=== PATIENT | male | born 1970 | race Caucasian/White ===

== ENCOUNTER 2019-06-29 19:10 | Inpatient (IN) ==
--- OUTSIDE RECORDS SUMMARY | 2019-06-29 19:13 | External Medical Summary | Continuity of Care Document ---
:1970 Author Name Jer Haines Address Unavailable Unavailable , Care Team Providers Name Role Phone Unavailable Unavailable Unavailable [email or web address] [email or web address] [place] ROACH M.D. Unavailable Unavailable Unavailable Unavailable Unavailable Problems Right shoulder pain (719.41) (M25.511) Allergies and Adverse Reactions No Known Drug Allergies (Allergy) Medications Ibuprofen 800 MG Oral Tablet; TAKE 1 TABLET 3 TIMES DA ZAINAB WITH MEALS. CHRISTIAN Grider Start: 27-Dec-2014 Quantity: 60 Refills: 0 Colon Herbal Cleanser Oral Capsule , M.DMaya Refills: 0 Procedures Procedures not documented Immunizations Immunizations not documented Social History - Smoking Status Current some day smoker Plan of Treatment Planned Observations Planned Goals not documented Results No Known Results Results not documented
[2019-06-29] MEDS ORDERED: DIPHTHERIA/TETANUS/PERTUSSIS 0.5 ML SYR/VIAL IM ONE (19:37)
[2019-06-29] MEDS ORDERED: SODIUM CHLORIDE 0.9% 1000ML 1,000 ML IV SCH (19:45)
--- NOTE | 2019-06-29 19:58 | XRay Report ---
XR chest 1V portable CLINICAL HISTORY: fever dyspnea COMPARISON STUDY: No previous studies for comparison. FINDINGS: The bones soft tissues and hemidiaphragms are normal. The cardiomediastinal silhouette is n ormal. The lungs are clear. The pulmonary vasculature is normal. IMPRESSION: Negative chest. ACT 112: Negative or not required by law. The above report was generated using voice recognition software. It may contain grammatical, syntax or spelling errors. Electronically signed by: Gasper Arana M.D. 06/29/2019 7:57 PM
--- NOTE | 2019-06-29 19:58 | XRay Report ---
XR ankle RT min 3V routine CLINICAL HISTORY: cellulitis, hx ankle surgery pain. Cellulitis. COMPARISON: None. DISCUSSION: Open reduction internal fixation of the distal fibula. Cortical margins are intact. Ankle mortise is aligned anatomically. No lytic or blastic process. Considerable lateral soft tissue edema. 2009 IMPRESSION: 1. No acute bony abnormality. 2. Postoperative changes to the distal fibula. 3. Lateral nonspecific soft tissue edema. ACT 112: Negative or not required by law. The above report was generated using voice recognition software. It may contain grammatical, syntax or spelling errors. Electronically signed by: Gaspre Arana M.D. 06/29/2019 7:56 PM
--- NOTE | 2019-06-29 19:59 | XRay Report ---
XR tibia fibula RT 2V CLINICAL HISTORY: cellulitis, hx ankle surgery pain COMPARISON: None. DISCUSSION: Findings consistent with prior open reduction internal fixation of the distal fibula. Sof t tissue edema. No well-defined acute bony abnormality. The margins appear to be intact. IMPRESSION: Soft tissue edema. Pre-existing postoperative changes distal fibula. No acute process. ACT 112: Negative or not required by law. The above report was generated using voice recognition software. It may contain grammatical, syntax or spelling errors. Electronically signed by: Gasper Arana M.D. 06/29/2019 7:58 PM
--- NOTE | 2019-06-29 20:08 | Emergency Department Note ---
ED Provider Note CHIEF COMPLAINT: Right leg pain, redness, swelling HISTORY OF PRESENTING ILLNESS: This is a 49-year-old male who presents to the emergency department by private vehicle with complaint of right lower leg redness, swelling, and pain that he believes started yesterday. Patient states that he started to have some pain in the leg yesterday afternoon and also had fevers off and on since yesterday afternoon. Today when he was putting his socks on, he noticed that the leg was swollen and red. He reports fevers fluctuating between 102-104, and he last took Tylenol around 5:30 PM today. He states that he had bumped his leg several times while working, but denies any known injury and he is unsure if he cut or scraped the leg. He denies any history of cellulitis or infections in the past. He is [employer], and reports that he was vaccinated as a child, but his tetanus is not currently up-to-date. He does note that he had an ankle surgery with plates and screws about 25 years ago, he denies any swelling or pain in the ankle joint or foot. He denies any headaches, neck pain, chest pain, shortness of breath, dizziness or syncope, abdominal pain, back pain, numbness/tingling or weakness of the extremities, nausea or vomiting, change in appetite, urinary symptoms, or unusual rash. He denies any URI symptoms or cough. REVIEW OF SYSTEMS: A complete 10 point review of systems was reviewed with the patient with pertinent positives and negatives as per history of present illness. All else were negative. PAST MEDICAL HISTORY: No significant past medical history. History of right ankle surgery. SOCIAL HISTORY: Lives at home, he is Anglican, denies tobacco use ALLERGIES: No known allergies PHYSICAL EXAM: CONSTITUTIONAL: Pleasant and cooperative. Nontoxic-appearing and in no acute distress. Mildly dehydrated, but otherwise well appearing and well nourished. HEENT: Normocephalic, atraumatic. PERRL, EOMI. Pharynx normal. Tacky mucous membranes. NECK: Supple, full active range of motion without discomfort. No cervical adenopathy. RESPIRATORY: Clear to auscultation bilaterally with no wheezing, crackles, rhonchi or stridor. Equal expansion bilaterally. CARDIOVASCULAR: Tachycardic. Regular rhythm with no murmurs, rubs or gallops. Normal peripheral perfusion. No edema. GASTROINTESTINAL: Soft, nontender, nondistended. No palpable masses or HSM. Bowel sounds present in all quadrants. MUSCULOSKELETAL: There is swelling, tenderness, warmth, and circumferential erythema of the right calf extending from the ankle to just below the knee. No blistering or bulla noted. Small open area on the medial aspect of the lower ca lf with serous fluid draining, no purulence or foul odor. Full range of motion of the ankle and knee joints without discomfort. DP and PT pulses 2+ bilaterally. INTEGUMENTARY: No rash or other significant dermatologic conditions noted. NEUROLOGIC: Alert and oriented X 4 with normal affect. Normal strength and sensation in all 4 extremities. ED COURSE AND MEDICAL DECISION MAKING: CC: Patient presenting with complaint of right leg pain, redness, swelling DIFFERENTIAL DIAGNOSIS: Includes, but not limited to cellulitis, abscess, bacteremia/sepsis, DVT, infected surgical hardware, osteomyelitis, among others. INTERPRETATION OF LABS: Leukocytosis with left shift, mild anemia, normal pl atelets, no significant electrolyte abnormalities, normal renal function, normal liver enzymes. Lactate within normal limits. IMAGING: XR ankle RT min 3V routine CLINICAL HISTORY: cellulitis, hx ankle surgery pain. Cellulitis. COMPARISON: None. DISCUSSION: Open reduction internal fixation of the distal fibula. Cortical margins are intact. Ankle mortise is aligned anatomically. No lytic or blastic process. Considerable lateral soft tissue edema. 2009 IMPRESSION: 1. No acute bony abnormality. 2. Postoperative changes to the distal fibula. 3. Lateral nonspecific soft tissue edema. ----- XR tibia fibula RT 2V CLINICAL HISTORY: cellulitis, hx ankle surgery pain COMPARISON: None. DISCUSSION: Findings consistent with prior open reduction internal fixation of the distal fibula. Soft tissue edema. No well-defined acute bony abnormality. The margins appear to be intact. IMPRESSION: Soft tissue edema. Pre-existing postoperative changes distal fibula. No acute process. ----- XR chest 1V portable CLINICAL HISTORY: fever dyspnea COMPARISON STUDY: No previous studies for comparison. FINDINGS: The bones soft tissues and hemidiaphragms are normal. The cardiomediastinal silhouette is normal. The lungs are clear. The pulmonary vasculature is normal. IMPRESSION: Negative chest. EKG: Shows sinus tachycardia with a rate of 119 bpm, normal intervals, no ST or T wave abnormalities, no ectopy by my interpretation. No previous EKG available for comparison. MEDICATION RECONCILIATION: I attest that I have personally reviewed the patient's current medication list. INITIAL VITAL SIGNS REVIEW: I reviewed the patient's initial vital signs and interpret them as follows: T: Febrile; BP: Hypertensive; HR: Tachycardic; RR: Within normal limits; Pulse Ox: Within normal limits on room air. Blood pressure screening: The patient was found to have an elevated blood pres sure, which was felt to be situational and was referred to the inpatient team for further management. MDM SUMMARY: Patient was evaluated at bedside, history and physical exam performed. Patient is alert and oriented, no acute distress, resting calmly in stretcher. He is noted to be febrile and tachycardic, but does not appear to be in any distress or toxic appearing. The right calf appears consistent with cellulitis, circumferential extending from the ankle to the knee, but no apparent joint involvement. Orders were placed at bedside for labs, lactate, blood cultures x2, IV fluid bolus x2 L for hydration, chest x-ray, EKG, x-rays of the ankle and tibia/fibula to evaluate for infection. Patient's tetanus was updated. 3 g IV Unasyn was ordered for coverage of the cellulitis. The patient was offered something for pain, he declines at this time. Patient discussed with Dr. Eduardo, who agrees with my assessment, plan, and disposition. Labs and imaging reviewed as above, no concerns on imaging for osteomyelitis or involvement of the surgical hardware. Exam findings are consistent with a cellulitis, and the patient demonstrates SIRS criteria with tachycardia, fever, and leukocytosis. On reassessment, the patient did have a worsening of his fever, elevating to 38.9, which I did recommend to treat. P.o. Tylenol was ordered and the patient was agreeable to this. I discussed the patient with [facility], who agrees to evaluate the patient for admission. Patient reassessed multiple times throughout ED stay, he has remained hemodynamically stable, and his pain is adequately controlled. The patient and his were updated on all results and plan for admission/observation, they verbalized understanding and were agreeable to this plan. The patient was stable at time of admission. The chart was completed utilizing [employer] voice recognition software. Grammatical errors, random word insertions, pronoun errors, and incomplete sent ences are an occasional consequence of this system due to software limitations, ambient noise, and hardware issues. Any formal questions or concerns about the content, text, or information contained within the body of this dictation should be directly addressed to the nurse practitioner for clarification. Impression & Plan Cellulitis of right lower leg, Tachycardia, Leukocytosis, Acute febrile illness Past Med/Surg History Social History Feels Safe at Home: Yes Smoking Status: Never smoker Results & Data Vital Signs Vital Signs - 24 hr 06/29/19 19:13 06/29/19 20:30 06/29/19 21:20 Temperature 37.8 C H 38.9 C H Temperature Source Oral Oral Pulse Rate 130 H 119 H Pulse Rate from SpO2 Sensor 119 H Respiratory Rate 20 20 Respiratory Effort / Characteristics Non-Labored Spontaneous Respiratory Depth Normal Blood Pressure 147/84 H 109/60 Blood Pressure Mean 105 78 Pulse Oximetry 96 95 Oxygen Delivery Method Room Air Sepsis Recent Fever Within 48 Hours Yes Sepsis New/Unexplained Change in Mental Status No Sepsis Action Taken by Nursing No Action Required 06/29/19 22:59 Temperature Temperature Source Pulse Rate 114 H Pulse Rate from SpO2 Sensor Respiratory Rate 20 Respiratory Effort / Characteristics Respiratory Depth Blood Pressure 121/70 Blood Pressure Mean Pulse Oximetry 95 Oxygen Delivery Method Room Air Sepsis Recent Fever Within 48 Hours Sepsis New/Unexplained Change in Mental Status Sepsis Action Taken by Nursing Laboratory Data Result diagrams: 06/29/19 20:07 06/29/19 20:07 Lab Results 06/29/19 06/29/19 06/29/19 Range/Units 20:07 20:07 20:07 WBC 13.50 H (4.8-10.8) K/uL RBC 4.31 L (4.7-6.1) M/uL Hgb 13.7 L (14.0-18.0) g/dL Hct 40.0 L (42-52) % MCV 92.8 (80-100) fL MCH 31.8 (25-34) pg MCHC 34.3 (32-36) g/dL RDW Std Deviation 45.1 (36.4-46.3) fL RDW Coeff of Renetta 13.3 (11.5-14.5) % Plt Count 153 (130-400) K/uL MPV 10.9 H (7.4-10.4) fL Immature Gran % (Auto) 0.3 % Neut % (Auto) 82.1 % Lymph % (Auto) 11.5 % [place] % (Auto) 5.1 % Eos % (Auto) 0.7 % Baso % (Auto) 0.3 % Immature Gran # (Auto) 0.04 H (0.00-0.02) K/uL Neut # (Auto) 11.08 H (1.4-6.5) K/uL Lymph # (Auto) 1.55 (1.2-3.4) K/uL [place] # (Auto) 0.69 H (0.11-0.59) K/uL Eos # (Auto) 0.10 (0-0.5) K/uL Baso # (Auto) 0.04 (0-0.2) K/uL Sodium 135 L (136-145) mmol/L Potassium 3.6 (3.5-5.1) mmol/L Chloride 104 (98-107) mmol/L Carbon Dioxide 24 (21-32) mmol/L Anion Gap 7.0 (3-11) BUN 17 (7-18) mg/dl Creatinine 1.35 (0.6-1.4) mg/dl Est Cr Clr Drug Dosing Not Reportable Est GFR ( Amer) 71.4 Est GFR (Non-Af Amer) 61.6 BUN/Creatinine Ratio 12.3 (10-20) Glucose 120 H (70-99) mg/dl Lactate 1.0 (0.4-2.0) mmol/L Calcium 8.6 (8.5-10.1) mg/dl Total Bilirubin 0.5 (0.2-1) mg/dl AST 21 (15-37) U/L ALT 41 (12-78) U/L Alkaline Phosphatase 91 (45-117) U/L Total Protein 7.4 (6.4-8.2) gm/dl Albumin 3.4 (3.4-5.0) gm/dl Globulin 4.0 (2.5-4.0) gm/dl Albumin/Globulin Ratio 0.9 (0.9-2) Administered Medications Discontinued Medications Acetaminophen (Tylenol) 650 mg PO NOW STA Stop: 06/29/19 21:23 Last Admin: 06/29/19 21:34 Dose: 650 mg Documented by: [id number] Diphtheria/Pertussis/Tetanus Vacc (Adacel) 0.5 ml IM .ONCE ONE Stop: 06/29/19 19:38 Last Admin: 06/29/19 20:56 Dose: 0.5 ml Documented by: [id number] Sodium Chloride (Nss 1000ml) 1,000 mls @ 999 mls/hr IV .Q1H1M DENISE Stop: 06/29/19 20:45 Last Infusion: 06/29/19 21:58 Dose: 0 mls/hr Documented by: [id number] Admin: 06/29/19 20:56 Dose: 999 mls/hr Documented by: [id number] Ampicillin Sodium/Sulbactam Sodium 3,000 mg/ Sodium Chloride 108 mls @ 200 mls/hr IV NOW STA; Protocol Stop: 06/29/19 20:46 Last Infusion: 06/29/19 21:36 Dose: 0 mls/hr Documented by: [id number] Admin: 06/29/19 20:55 Dose: 200 mls/hr Documented by: [id number] Sodium Chloride (Nss 1000ml) 1,000 mls @ 999 mls/hr IV .Q1H1M ONE Stop: 06/29/19 22:33 Last Admin: 06/29/19 22:25 Dose: 999 mls/hr Documented by: [id number] Discharge Plan Visit Data Chief Complaint: Skin Problem Stated Complaint: CELLULITIS FEVER 102 ED Provider: Ronald Eduardo ED Midlevel Provider: Karrie Beebe Discharge Problem: Cellulitis of right lower leg, Tachycardia, Leukocytosis, Acute febrile illness Patient Disposition: Admitted As Inpatient Condition: Good Discharge Instructions Interventions: ED Discharge Assessment Last Done: 06/29/19 22:59 Forms Stand Alone Forms: [facility] Prescriptions Prescriptions: No Action acetaminophen [Tylenol Extra Strength] 500 mg Tablet 1,000 mg PO Q6H PRN (Reason: Fever Or Pain) RF: 0 Referrals Referrals: Tae Larson MD [Primary Care Provider] -
[2019-06-29] MEDS ORDERED: AMPICILLIN/SULBACTAM SOD 3,000 MG in 0.9 % SODIUM CHLORIDE 100 ML IV STA (20:14)
[2019-06-29 20:27] LABS: Basophils # (auto) 0.04 K/uL (0-0.2); Basophils % (auto) 0.3 %; Eosinophils % (auto) 0.7 %; Hemoglobin 13.7 g/dL (14.0-18.0); Immature Granulocytes # (auto) 0.04 K/uL (0.00-0.02); Immature Granulocytes % (auto) 0.3 %; Lymphocytes # (auto) 1.55 K/uL (1.2-3.4); Lymphocytes % (auto) 11.5 %; Mean Corpuscular Hemoglobin 31.8 pg (25-34); Mean Corpuscular Hgb Conc 34.3 g/dL (32-36); Mean Corpuscular Volume 92.8 fL (80-100); Mean Platelet Volume 10.9 fL (7.4-10.4); Monocytes # (auto) 0.69 K/uL (0.11-0.59); Monocytes % (auto) 5.1 %; Neutrophils # (auto) 11.08 K/uL (1.4-6.5); Neutrophils % (auto) 82.1 %; Platelet Count 153 K/uL (130-400); RDW Coefficient of Variation 13.3 % (11.5-14.5); RDW Standard Deviation 45.1 fL (36.4-46.3); Red Blood Count 4.31 M/uL (4.7-6.1)
[2019-06-29 20:43] LABS: Alanine Aminotransferase 41 U/L (12-78); Albumin Level 3.4 gm/dl (3.4-5.0); Aspartate Aminotransferase 21 U/L (15-37); BUN Creatinine Ratio 12.3 (10-20); Blood Urea Nitrogen 17 mg/dl (7-18); Calcium 8.6 mg/dl (8.5-10.1); Carbon Dioxide 24 mmol/L (21-32); Chloride 104 mmol/L (98-107); Est GFR (African American) 71.4; Est GFR (Non-African American) 61.6; Glucose 120 mg/dl (70-99); Potassium 3.6 mmol/L (3.5-5.1); Sodium 135 mmol/L (136-145)
[2019-06-29 20:46] LABS: Albumin Globulin Ratio 0.9 (0.9-2); Alkaline Phosphatase 91 U/L (45-117); Bilirubin,Total 0.5 mg/dl (0.2-1); Total Protein 7.4 gm/dl (6.4-8.2)
[2019-06-29] MEDS ORDERED: ACETAMINOPHEN 325 MG TAB PO STA (21:22)
[2019-06-29] MEDS ORDERED: SODIUM CHLORIDE 0.9% 1000ML 1,000 ML IV ONE (21:33)
[2019-06-29] MEDS ORDERED: KETOROLAC TROMETHAMINE 15 MG/ML VIAL IV PRN (22:12)
--- NOTE | 2019-06-29 23:34 | History & Physical Report ---
Date of Service June 29, 2019 Assessment & Plan (1) Erysipelas of right lower extremity: Admit GMF IV Unasyn given in the ED, I continued treatment with IV Cefazolin. wound consult Pain and nausea control I ordered HGBA1C to monitor of diabetes which, if present, could complicate course. Tetanus booster given in the ED. History of Present Illness 49 y/o male presented to the ED with a 12hour onset of right lower extremity redness, swelling and burning pain. He had noticed fevers on and off since the previous day. He felt that his right leg was "itchy" overnight and that he was likely scratching it with his opposite foot. At work he reports bumping his leg a number of times as part of daily routine in the [employer]. No SOB, cough, chest pain, N/V/D, or headache. . Primary Care Provider: Tae Larson MD Allergies Allergy/AdvReac Type Severity Reaction Status Date / Time No Known Allergies Allergy Unverified 06/29/19 19:32 Home Medications Home Medications Medication Instructions Recorded Confirmed Type acetaminophen [Tylenol Extra 1,000 mg PO Q6H PRN 06/29/19 06/29/19 History Strength] Past Med/Surg History Medical History Closed right ankle fracture Surgical History History of open reduction and internal fixation (ORIF) procedure Social History Preferred Language: Peruvian Communication Ability: Effective Head Neck Surgeon Required: No Beliefs That Will Affect Care: None Current Living Situation: Spouse Other Information That Helps Us Care for You: No Feels Safe at Home: Yes Safety Concerns: Feels Safe At This Time Smoking Status: Former smoker Tobacco Type: smokeless tobacco ; Do You Dip or Chew Tobacco: Yes ; Smoking End Date: 2012 ; Second Hand Exposure: No ; Tobacco Cessation Education Requested by Patient: No Hx Alcohol Use: Yes Alcohol type: hard liquor Hx Substance Use: No Review of Systems Review of Systems: Constitutional- no weight loss Eyes- no acute visual changes ENT- no sinus drainage; no pharyngitis Pulmonary- no cough, no wheezing, no shortness of breath Cardiac- no chest pain, no palpitations, no orthopnea, no dependent edema GI- no nausea, no vomiting, no diarrhea, no melena, no hematochezia - no dysuria, no hematuria Musculoskeletal- no arthralgias, no myalgias Derm- As in HPI Hematologic- no unusual bruising, no unusual bleeding Lymphatics- no adenopathy Endocrine- no polyuria or polydipsia; no heat or cold intolerance Neuro- no headaches, no focal neurologic symptoms Psych- no anxiety, no depression Physical Exam Physical Exam: General- adult, male NAD Head- atraumatic Eyes- PERRL, EOMI, anicteric ENT- oropharynx clear Neck- supple, no JVD, no adenopathy, no thyromegaly. Lungs- CTA b/l no R/R/W Heart- regular rhythm; no murmur, no gallop, no rub appreciated Abdomen- normal bowel sounds, soft, nontender. Extremities- Right lower extremity shows circumferential bright red erythema with a few small open areas medially with serosanguinous drainage. erythema margins marked with pen. Left leg shows hemosiderin changes. Neuro- alert, oriented x 3; PERRL, EOMI; no facial palsy; no dysarthria; motor 5/5 bilaterally; no cogwheel rigidity; patellar DTRs +2/2; toes downgoing bilaterally; finger to nose intact bilaterally Skin- See ext exam. Results & Data Vital Signs (Past 12 Hours) Vital Signs Temp Pulse Resp BP Pulse Ox 06/29/19 22:59 114 H 20 121/70 95 06/29/19 21:20 38.9 C H 06/29/19 20:30 119 H 20 109/60 95 06/29/19 19:13 37.8 C H 130 H 20 147/84 H 96 Laboratory Results Laboratory Results WBC 13.50 K/uL (4.8-10.8) H 06/29/19 20:07 RBC 4.31 M/uL (4.7-6.1) L 06/29/19 20:07 Hgb 13.7 g/dL (14.0-18.0) L 06/29/19 20:07 Hct 40.0 % (42-52) L 06/29/19 20:07 MCV 92.8 fL (80-100) 06/29/19 20:07 MCH 31.8 pg (25-34) 06/29/19 20: MCHC 34.3 g/dL (32-36) 06/29/19 20: RDW Std Deviation 45.1 fL (36.4-46.3) 06/29/19 20: RDW Coeff of Renetta 13.3 % (11.5-14.5) 06/29/19 20: Plt Count 153 K/uL (130-400) 06/29/19 20: MPV 10.9 fL (7.4-10.4) H 06/29/19 20:07 Immature Gran % (Auto) 0.3 % 06/29/19 20: Neut % (Auto) 82.1 % 06/29/19: Lymph % (Auto) 11.5 % 06/29/19 20: [place] % (Auto) 5.1 % 06/29/19 20:07 Eos % (Auto) 0.7 % 06/29/19: Baso % (Auto) 0.3 % 06/29/19: Immature Gran # (Auto) 0.04 K/uL (0.00-0.02) H 06/29/19 20:07 Neut # (Auto) 11.08 K/uL (1.4-6.5) H 06/29/19 20:07 Lymph # (Auto) 1.55 K/uL (1.2-3.4) 06/29/19 20:07 [place] # (Auto) 0.69 K/uL (0.11-0.59) H 06/29/19 20: Eos # (Auto) 0.10 K/uL (0-0.5) 06/29/19 20: Baso # (Auto) 0.04 K/uL (0-0.2) 06/29/19 20: Sodium 135 mmol/L (136-145) L 06/29/19 20: Potassium 3.6 mmol/L (3.5-5.1) 06/29/19 20:07 Chloride 104 mmol/L (98-107) 06/29/19 20:07 Carbon Dioxide 24 mmol/L (21-32) 06/29/19 20:07 Anion Gap 7.0 (3-11) 06/29/19 20:07 BUN 17 mg/dl (7-18) 06/29/19 20:07 Creatinine 1.35 mg/dl (0.6-1.4) 06/29/19 20: Est Cr Clr Drug Dosing Not Reportable 06/29/19 20: Est GFR ( Amer) 71.4 06/29/19 20:07 Est GFR (Non-Af Amer) 61.6 06/29/19 20:07 BUN/Creatinine Ratio 12.3 (10-20) 06/29/19 20:07 Glucose 120 mg/dl (70-99) H 06/29/19 20:07 Lactate 1.0 mmol/L (0.4-2.0) 06/29/19 20: Calcium 8.6 mg/dl (8.5-10.1) 06/29/19 20:07 Total Bilirubin 0.5 mg/dl (0.2-1) 06/29/19 20:07 AST 21 U/L (15-37) 06/29/19 20:07 ALT 41 U/L (12-78) 06/29/19 20:07 Alkaline Phosphatase 91 U/L (45-117) 06/29/19 20:07 Total Protein 7.4 gm/dl (6.4-8.2) 06/29/19 20: Albumin 3.4 gm/dl (3.4-5.0) 06/29/19 20:07 Globulin 4.0 gm/dl (2.5-4.0) 06/29/19 20: Albumin/Globulin Ratio 0.9 (0.9-2) 06/29/19 20: Urine Color Yellow 06/30/19 00:15 Urine Appearance Clear (Clear) 06/30/19 00:15 Urine pH 6.0 (4.5-7.5) 06/30/19 00:15 Ur Specific [place] 1.019 (1.000-1.030) 06/30/19 00:15 Urine Protein Negative (Negative) 06/30/19 00:15 Urine Glucose (UA) Negative (Negative) 06/30/19 00:15 Urine Ketones Negative (Negative) 06/30/19 00:15 Urine Blood Negative (Negative) 06/30/19 00: Urine Nitrite Negative (Negative) 06/30/19 00:15 Urine Bilirubin Negative (Negative) 06/30/19 00:15 Urine Urobilinogen Negative (Negative) 06/30/19 00:15 Ur Leukocyte Esterase Negative (Negative) 06/30/19 00:15 Diagnostic Findings [facility] Adelfo MARKEL [phone] XRay Report Patient: FAM ROBLEROAdmit Date: 06/29/19 MR#: [id number]: [address] Acct ID:[id number]: Date: 1970City Zip: [place] [address] Age: 49Location: ED Sex: M Room/Bed: Att Phy:Diagnosis: CELLULITIS FEVER 102 [place] Phy: Tae Larson MDService Date: 06/29/19 Fam Phy:Interpreting Phy: Gasper Arana MD Admit Phy: Ordering Phy: Karrie Beebe CRNP cc: ~ XR tibia fibula RT 2V CLINICAL HISTORY: cellulitis, hx ankle surgery pain COMPARISON: None. DISCUSSION: Findings consistent with prior open reduction internal fixation of the distal fibula. Soft tissue edema. No well-defined acute bony abnormality. The margins appear to be intact. IMPRESSION: Soft tissue edema. Pre-existing postoperative changes distal fibula. No acute process. ACT 112: Negative or not required by law. The above report was generated using voice recognition software. It may contain grammatical, syntax or spelling errors. Electronically signed by: Gasper Arana M.D. 06/29/2019 7:58 PM Dictated: 06/29/191956 Transcribed: 06/29/191956 Code Status & VTE Plan VTE Prophylaxis Plan VTE Prophylaxis will be ordered: Yes PG Care Time/CCT Total # of Minutes Spent Total Time Spent: 55 Total Time Spent with Patient: Total time spent is greater than 50% in coordination of care (as documented) at patient's floor/unit and/or counseling patient:
[2019-06-29] MEDS ORDERED: ONDANSETRON INJ 2 MG/ML 2 ML VIAL IV PRN (23:41)
[2019-06-29] MEDS ORDERED: HYDROmorphone INJ 0.5 MG/0.5 ML SYR IV PRN (23:41)
[2019-06-30] MEDS: SODIUM CHLORIDE 0.9% 1000ML 1,000 ML IV SCH ×4 (00:29→22:53)
[2019-06-30 00:38] LABS: Appearance Urine Clear (Clear); Bilirubin Urine Negative (Negative); Blood Urine Negative (Negative); Color Urine Yellow; Glucose Urine UA Negative (Negative); Ketones Urine Negative (Negative); Leukocyte Esterase Urine Negative (Negative); Nitrite Urine Negative (Negative); Protein Urine Negative (Negative); Specific Gravity Urine 1.019 (1.000-1.030); Urobilinogen Urine Negative (Negative)
[2019-06-30] MEDS: CEFAZOLIN 2000MG 2,000 MG/15 ML SYR IV SCH ×3 (03:35→20:52)
[2019-06-30 05:57] LABS: Hematocrit (blood only) 38.4 % (42-52); Hemoglobin 13.3 g/dL (14.0-18.0); Mean Corpuscular Hemoglobin 32.5 pg (25-34); Mean Corpuscular Hgb Conc 34.6 g/dL (32-36); Mean Corpuscular Volume 93.9 fL (80-100); Mean Platelet Volume 10.9 fL (7.4-10.4); Platelet Count 138 K/uL (130-400); RDW Coefficient of Variation 13.6 % (11.5-14.5); RDW Standard Deviation 46.8 fL (36.4-46.3); Red Blood Count 4.09 M/uL (4.7-6.1); White Blood Count 11.06 K/uL (4.8-10.8)
[2019-06-30 06:38] LABS: Estimated Average Glucose 120 mg/dl; Hemoglobin A1C 5.8 % (4.5-5.6)
[2019-06-30 06:46] LABS: BUN Creatinine Ratio 9.6 (10-20); Blood Urea Nitrogen 10 mg/dl (7-18); Calcium 8.3 mg/dl (8.5-10.1); Carbon Dioxide 26 mmol/L (21-32); Chloride 107 mmol/L (98-107); Est GFR (African American) 95.7; Est GFR (Non-African American) 82.6; Glucose 124 mg/dl (70-99); Potassium 3.8 mmol/L (3.5-5.1); Sodium 135 mmol/L (136-145)
[2019-06-30] MEDS: ACETAMINOPHEN 325 MG TAB PO PRN ×3 (07:30→23:32)
[2019-06-30] MEDS: ENOXAPARIN INJ 40 MG/0.4 ML SYR SQ SCH (07:31)
--- NOTE | 2019-06-30 08:44 | Electrocardiogram Report ---
Test Reason : Blood Pressure : / mmHG Vent. Rate : 119 BPM Atrial Rate : 119 BPM P-R Int : 154 ms QRS Dur : 084 ms QT Int : 314 ms P-R-T Axes : 056 050 017 degrees QTc Int : 441 ms Poor data quality, interpretation may be adversely affected Sinus tachycardia Otherwise normal ECG No previous ECGs available Confirmed by Iggy Stinson ([id number]) on 06/30/2019 8:44:11 AM Referred By: REFERRED SELF Confirmed By:Iggy Stinson
--- NOTE | 2019-06-30 16:27 | Hospitalist Progress Note ---
Date of Service June 30, 2019 Assessment & Plan (1) Erysipelas of right lower extremity: * IV Unasyn given in ED, continued to IV Cefazolin. Tetanus booster in ED. WBC 13.5k on admission, 11k currently. * NSS @ 125ml/hr * Continues to spike temp -- most recently 39.3C (102.7F) this evening. Lactic 1.2. ESR, CRP pending * Blood cultures pending * Obtain wound culture * Wound care consult -- appreciate input * Add clindamycin for anaerobic coverage * Infectious Disease consult-- appreciate input (2) Pre-diabetes: * No hx diabetes * A1c 5.8 --> will need counseling and education prior to discharge (3) Acute febrile illness: * As above (4) Leukocytosis: * Improving, as above (5) Tachycardia: * Currently 114bpm -- likely related to acute illness. Asymptomatic. continue to monitor (6) DVT prophylaxis: * Lovenox Dispo: continue IV abx, await culture results Supervising Physician Co-Signing Physician Notes PA Supervision Note: I personally saw and examined the patient. I verified all farrell points and agree with MARKEL Irvin with the following exceptions and/or additions: Pt seen and has no complaints. thinks redness is improved in foot/ankle but remains quite red and draining mid leg. Remains febrile today. Pt adamant that he go home tomorrow VSS Obese, NAD unlabored breathing RRR no mgr CTAB no wcr Ext Rt leg with erythema from ankle to prox leg receding from previously drawn marker line, 2+ edema, dressing saturated with serous fluid, no streaking of erythema up leg 49 yo male here with erysipelas, abrupt onset of fever, erythema. BCxs no growth thus far, erythema improving added on clinda for MRSA coverage, continue ANcef APAP for fevers observe for improvement Subjective Patient resting in bed comfortably with and family at bedside. Patient states he notices redness of his right leg yesterday morning that only he witnessed, but that it got worse last night and came to ER. Frequent trauma to both legs, with getting in and out of heavy equipment, as he works at a [employer]. Denies any open wound, although patient's states that last night when she saw it, she placed her hand on it and when she removed her hand there was a gush of fluid that drained from the leg. She states it was clear, but did have blood tinged fluid present as well. Denies purulent material. Denies any pain. Able to move foot without difficulty. Chronic swelling of that leg, with history of surgery over 3 years ago for ankle fx. Patient admits that he has been experiencing fevers/chills since Saturday, but didn't notice any redness until yesterday. Denies any previous occurrence of anything similar. No new medications. Takes occasional ibuprofen/tylenol for generalized aches/pains but nothing on a daily basis. Upon looking at wound today with the , she states she believes the redness has receded from his foot, but that it looks more tense/"as if it were burnt". Patient unaware of last tetanus but did receive booster in ER. Denies hx DM, most recent A1c 5.8. Denies chest pain, shortness of breath, n/v/d/c, dysuria, headache, visual changes. Review of Systems Review of Systems: All systems reviewed & are unremarkable except as noted in HPI & below Constitutional: + fever and + chills Eyes: no diplopia and no problem reported Respiratory: no cough and no dyspnea Cardiovascular: no chest pain, no palpitations and no edema Gastrointestinal: no abdominal pain, no nausea, no vomiting, no constipation and no diarrhea/loose stools Genitourinary: no dysuria and no urinary frequency Musculoskeletal: no back pain and no joint pain Physical Exam Constitutional: WD/WN, vitals as above + obese; no acute distress Eyes: PERRL, conjunctivae normal, anicteric sclerae Neck: trachea midline, no thyromegaly Respiratory: normal respiratory effort, lungs clear to auscultation Cardiovascular: Rate/Rhythm: + tachycardic Heart Sounds: normal S1 and normal S2; no murmur Extremities: normal capillary refill; no calf tenderness pt, dp 2+ bilaterally Gastrointestinal (Abdomen): normal bowel sounds, soft, nontender, no hepatosplenomegaly obese Musculoskeletal: no cyanosis or clubbing, extremities motor strength 5/5 Skin: Erythema of right lower extremity, primarily anteriorly located with circumferential spread, within pen markings. Two small openings on medial aspect, expressive of clear drainage. Nontender to palpation, although several h ardened but blister areas spread from openings. Neurologic: patellar DTR's 2+ bilat, sensation intact Psychiatric: A+Ox3, euthymic affect Lymphatic: no cervical or axillary lymphadenopathy Results & Data Vital Signs (Past 12 Hours) Vital Signs Temp Pulse Resp BP Pulse Ox 06/30/19 16:02 39.3 C H 06/30/19 15:17 36.5 C 114 H 16 137/76 97 06/30/19 11:22 36.7 C 06/30/19 08:17 37.4 C 06/30/19 07:18 38.6 C H 109 H 16 152/69 H 95 Laboratory Results 06/30/19 06/30/19 06/30/19 Range/Units 09:35 05:30 05:30 WBC (4.8-10.8) K/uL RBC (4.7-6.1) M/uL Hgb (14.0-18.0) g/dL Hct (42-52) % MCV (80-100) fL MCH (25-34) pg MCHC (32-36) g/dL RDW Std Deviation (36.4-46.3) fL RDW Coeff of Renetta (11.5-14.5) % Plt Count (130-400) K/uL MPV (7.4-10.4) fL Immature Gran % (Auto) % Neut % (Auto) % Lymph % (Auto) % Coleman % (Auto) % Eos % (Auto) % Baso % (Auto) % Immature Gran # (Auto) (0.00-0.02) K/uL Neut # (Auto) (1.4-6.5) K/uL Lymph # (Auto) (1.2-3.4) K/uL Coleman # (Auto) (0.11-0.59) K/uL Eos # (Auto) (0-0.5) K/uL Baso # (Auto) (0-0.2) K/uL Sodium 135 L (136-145) mmol/L Potassium 3.8 (3.5-5.1) mmol/L Chloride 107 (98-107) mmol/L Carbon Dioxide 26 (21-32) mmol/L Anion Gap 2.0 L (3-11) BUN 10 D (7-18) mg/dl Creatinine 1.06 (0.6-1.4) mg/dl Est Cr Clr Drug Dosing Not Reportable Est GFR ( Amer) 95.7 Est GFR (Non-Af Amer) 82.6 BUN/Creatinine Ratio 9.6 L (10-20) Glucose 124 H (70-99) mg/dl Estimat Average Glucose 120 mg/dl Hemoglobin A1c 5.8 H (4.5-5.6) % Lactate 1.2 (0.4-2.0) mmol/L Calcium 8.3 L (8.5-10.1) mg/dl Total Bilirubin (0.2-1) mg/dl AST (15-37) U/L ALT (12-78) U/L Alkaline Phosphatase (45-117) U/L Total Protein (6.4-8.2) gm/dl Albumin (3.4-5.0) gm/dl Globulin (2.5-4.0) gm/dl Albumin/Globulin Ratio (0.9-2) Urine Color Urine Appearance (Clear) Urine pH (4.5-7.5) Ur Specific [place] (1.000-1.030) Urine Protein (Negative) Urine Glucose (UA) (Negative) Urine Ketones (Negative) Urine Blood (Negative) Urine Nitrite (Negative) Urine Bilirubin (Negative) Urine Urobilinogen (Negative) Ur Leukocyte Esterase (Negative) 06/30/19 06/30/19 06/29/19 Range/Units 05:30 00:15 20:07 WBC 11.06 H (4.8-10.8) K/uL RBC 4.09 L (4.7-6.1) M/uL Hgb 13.3 L (14.0-18.0) g/dL Hct 38.4 L (42-52) % MCV 93.9 (80-100) fL MCH 32.5 (25-34) pg MCHC 34.6 (32-36) g/dL RDW Std Deviation 46.8 H (36.4-46.3) fL RDW Coeff of Renetta 13.6 (11.5-14.5) % Plt Count 138 (130-400) K/uL MPV 10.9 H (7.4-10.4) fL Immature Gran % (Auto) % Neut % (Auto) % Lymph % (Auto) % Coleman % (Auto) % Eos % (Auto) % Baso % (Auto) % Immature Gran # (Auto) (0.00-0.02) K/uL Neut # (Auto) (1.4-6.5) K/uL Lymph # (Auto) (1.2-3.4) K/uL Coleman # (Auto) (0.11-0.59) K/uL Eos # (Auto) (0-0.5) K/uL Baso # (Auto) (0-0.2) K/uL Sodium (136-145) mmol/L Potassium (3.5-5.1) mmol/L Chloride (98-107) mmol/L Carbon Dioxide (21-32) mmol/L Anion Gap (3-11) BUN (7-18) mg/dl Creatinine (0.6-1.4) mg/dl Est Cr Clr Drug Dosing Est GFR ( Amer) Est GFR (Non-Af Amer) BUN/Creatinine Ratio (10-20) Glucose (70-99) mg/dl Estimat Average Glucose mg/dl Hemoglobin A1c (4.5-5.6) % Lactate 1.0 (0.4-2.0) mmol/L Calcium (8.5-10.1) mg/dl Total Bilirubin (0.2-1) mg/dl AST (15-37) U/L ALT (12-78) U/L Alkaline Phosphatase (45-117) U/L Total Protein (6.4-8.2) gm/dl Albumin (3.4-5.0) gm/dl Globulin (2.5-4.0) gm/dl Albumin/Globulin Ratio (0.9-2) Urine Color Yellow Urine Appearance Clear (Clear) Urine pH 6.0 (4.5-7.5) Ur Specific [place] 1.019 (1.000-1.030) Urine Protein Negative (Negative) Urine Glucose (UA) Negative (Negative) Urine Ketones Negative (Negative) Urine Blood Negative (Negative) Urine Nitrite Negative (Negative) Urine Bilirubin Negative (Negative) Urine Urobilinogen Negative (Negative) Ur Leukocyte Esterase Negative (Negative) 06/29/19 06/29/19 Range/Units 20:07 20:07 WBC 13.50 H (4.8-10.8) K/uL RBC 4.31 L (4.7-6.1) M/uL Hgb 13.7 L (14.0-18.0) g/dL Hct 40.0 L (42-52) % MCV 92.8 (80-100) fL MCH 31.8 (25-34) pg MCHC 34.3 (32-36) g/dL RDW Std Deviation 45.1 (36.4-46.3) fL RDW Coeff of Renetta 13.3 (11.5-14.5) % Plt Count 153 (130-400) K/uL MPV 10.9 H (7.4-10.4) fL Immature Gran % (Auto) 0.3 % Neut % (Auto) 82.1 % Lymph % (Auto) 11.5 % Coleman % (Auto) 5.1 % Eos % (Auto) 0.7 % Baso % (Auto) 0.3 % Immature Gran # (Auto) 0.04 H (0.00-0.02) K/uL Neut # (Auto) 11.08 H (1.4-6.5) K/uL Lymph # (Auto) 1.55 (1.2-3.4) K/uL Coleman # (Auto) 0.69 H (0.11-0.59) K/uL Eos # (Auto) 0.10 (0-0.5) K/uL Baso # (Auto) 0.04 (0-0.2) K/uL Sodium 135 L (136-145) mmol/L Potassium 3.6 (3.5-5.1) mmol/L Chloride 104 (98-107) mmol/L Carbon Dioxide 24 (21-32) mmol/L Anion Gap 7.0 (3-11) BUN 17 (7-18) mg/dl Creatinine 1.35 (0.6-1.4) mg/dl Est Cr Clr Drug Dosing Not Reportable Est GFR ( Amer) 71.4 Est GFR (Non-Af Amer) 61.6 BUN/Creatinine Ratio 12.3 (10-20) Glucose 120 H (70-99) mg/dl Estimat Average Glucose mg/dl Hemoglobin A1c (4.5-5.6) % Lactate (0.4-2.0) mmol/L Calcium 8.6 (8.5-10.1) mg/dl Total Bilirubin 0.5 (0.2-1) mg/dl AST 21 (15-37) U/L ALT 41 (12-78) U/L Alkaline Phosphatase 91 (45-117) U/L Total Protein 7.4 (6.4-8.2) gm/dl Albumin 3.4 (3.4-5.0) gm/dl Globulin 4.0 (2.5-4.0) gm/dl Albumin/Globulin Ratio 0.9 (0.9-2) Urine Color Urine Appearance (Clear) Urine pH (4.5-7.5) Ur Specific [place] (1.000-1.030) Urine Protein (Negative) Urine Glucose (UA) (Negative) Urine Ketones (Negative) Urine Blood (Negative) Urine Nitrite (Negative) Urine Bilirubin (Negative) Urine Urobilinogen (Negative) Ur Leukocyte Esterase (Negative) PG Care Time/CCT Total # of Minutes Spent Total Time Spent with Patient: Total time spent is greater than 50% in coordination of care (as documented) at patient's floor/unit and/or counseling patient: (1) Leukocytosis Leukocytosis type: unspecified Qualified Code(s): D72.829 - Elevated white blood cell count, unspecified
[2019-06-30] MEDS: CLINDAMYCIN 600 MG in DEXTROSE 5% 50 ML IV SCH (18:19)
[2019-07-01] MEDS: CLINDAMYCIN 600 MG in DEXTROSE 5% 50 ML IV SCH ×3 (01:47→17:18)
[2019-07-01] MEDS: CEFAZOLIN 2000MG 2,000 MG/15 ML SYR IV SCH ×2 (03:53→11:52)
[2019-07-01] MEDS: SODIUM CHLORIDE 0.9% 1000ML 1,000 ML IV SCH ×3 (06:23→21:05)
[2019-07-01 06:25] LABS: Basophils # (auto) 0.04 K/uL (0-0.2); Basophils % (auto) 0.5 %; Eosinophils # (auto) 0.53 K/uL (0-0.5); Eosinophils % (auto) 7.3 %; Hematocrit (blood only) 35.7 % (42-52); Hemoglobin 12.2 g/dL (14.0-18.0); Immature Granulocytes # (auto) 0.04 K/uL (0.00-0.02); Immature Granulocytes % (auto) 0.5 %; Lymphocytes # (auto) 1.63 K/uL (1.2-3.4); Lymphocytes % (auto) 22.3 %; Mean Corpuscular Hemoglobin 32.1 pg (25-34); Mean Corpuscular Hgb Conc 34.2 g/dL (32-36); Mean Corpuscular Volume 93.9 fL (80-100); Mean Platelet Volume 11.1 fL (7.4-10.4); Monocytes # (auto) 0.86 K/uL (0.11-0.59); Monocytes % (auto) 11.8 %; Neutrophils % (auto) 57.6 %; Platelet Count 128 K/uL (130-400); RDW Coefficient of Variation 13.8 % (11.5-14.5); RDW Standard Deviation 47.5 fL (36.4-46.3)
[2019-07-01 06:57] LABS: Alanine Aminotransferase 34 U/L (12-78); Albumin Level 2.6 gm/dl (3.4-5.0); Aspartate Aminotransferase 21 U/L (15-37); BUN Creatinine Ratio 9.6 (10-20); Blood Urea Nitrogen 10 mg/dl (7-18); Calcium 8.3 mg/dl (8.5-10.1); Carbon Dioxide 24 mmol/L (21-32); Chloride 110 mmol/L (98-107); Est GFR (African American) 96.8; Est GFR (Non-African American) 83.5; Glucose 164 mg/dl (70-99); Potassium 3.6 mmol/L (3.5-5.1); Sodium 138 mmol/L (136-145)
[2019-07-01 07:00] LABS: Albumin Globulin Ratio 0.7 (0.9-2); Alkaline Phosphatase 82 U/L (45-117); Bilirubin,Total 0.2 mg/dl (0.2-1); Total Protein 6.6 gm/dl (6.4-8.2)
[2019-07-01] MEDS: ENOXAPARIN INJ 40 MG/0.4 ML SYR SQ SCH (07:45)
[2019-07-01] MEDS: LACTOBACILLUS ACIDOPHILUS 1 GM PACK PO SCH ×3 (07:49→17:13)
--- NOTE | 2019-07-01 10:53 | Infectious Disease Consult ---
Date of Consultation July 01, 2019 Assessment & Plan (1) Cellulitis of right lower leg: will continue current abx, clinically appears to be improving. blood cultures negative, follow wound culture results. continue local wound care. hopefully can transition to po abx soon. History of Present Illness Attending Physician: Johanna Tubbs MD pt admitted with increased pain, redness, erythema LLE, some cuts to leg at home. had ORIF 25-30 years ago, denies any post op complication. Placed on ancef and clinda, tolerating well. states he is feeling well overall, decreased pain in leg. denies f/c but has had fever daily since admission, 06/29 38.9, 06/30 39.3, afebrile this am. OOB to chair on my exam, states he is walking in halls without difficulty. Blood cultures negative, 06/30 wound culture pending, gram stain negative. CXR negative, UA negative. wbc improved from 13 to 7. ESR 70, CRP 15. creat 1.0. line drawn on leg, erythema improving. pt denies abd pain, no n/v/d. no cp, sob, cough. family at bedside. Allergies Allergy/AdvReac Type Severity Reaction Status Date / Time No Known Allergies Allergy Unverified 06/29/19 19:32 Home Medications Home Medications Medication Instructions Recorded Confirmed Type acetaminophen [Tylenol Extra 1,000 mg PO Q6H PRN 06/29/19 06/29/19 History Strength] Patient History Medical History Closed right ankle fracture Surgical History History of open reduction and internal fixation (ORIF) procedure Social History Preferred Language: Occitan Communication Ability: Effective Right Of Way Clearer Required: No Beliefs That Will Affect Care: None marital status: Current Living Situation: Spouse Feels Safe at Home: Yes Smoking Status: Former smoker Tobacco Type: smokeless tobacco ; Second Hand Exposure: No ; Hx Alcohol Use: Yes Alcohol type: hard liquor Hx Substance Use: No Review of Systems Review of Systems: All systems reviewed & are unremarkable except as noted in HPI & below Physical Exam Constitutional: WD/WN, vitals as above Eyes: PERRL, conjunctivae normal, anicteric sclerae ENMT: external ear and nose normal, oropharynx normal Neck: normal visual inspection Respiratory: normal respiratory effort, lungs clear to auscultation Cardiovascular: RRR, no murmur, no edema Gastrointestinal (Abdomen): normal bowel sounds, soft, nontender, no hepatosplenomegaly Musculoskeletal: no cyanosis or clubbing, extremities motor strength 5/5 Skin: no rashes, warm and dry + erythema (warmth, swelling, erythema decreased, dressing intact) Psychiatric: A+Ox3, euthymic affect Results & Data Vital Signs (Past 12 Hours) Vital Signs Temp Pulse Resp BP Pulse Ox 07/01/19 07:47 37.0 C 90 18 117/81 100 07/01/19 01:52 36.9 C 06/30/19 23:10 38 C H 96 H 20 160/68 H 96 Laboratory Results Microbiology 06/30/19 20:53 Leg,Right Gram Stain - Final 06/29/19 20:11 Blood Aerobic Blood Culture - Preliminary No growth in Aerobic bottle after 24 hours. 06/29/19 20:11 Blood Anaerobic Blood Culture - Preliminary No growth in Anaerobic bottle after 24 hours. 06/29/19 20:07 Blood Aerobic Blood Culture - Preliminary No growth in Aerobic bottle after 24 hours. 06/29/19 20:07 Blood Anaerobic Blood Culture - Preliminary No growth in Anaerobic bottle after 24 hours. PG Care Time/CCT Total # of Minutes Spent Total Time Spent with Patient: Total time spent is greater than 50% in coordination of care (as documented) at patient's floor/unit and/or counseling patient:
--- NOTE | 2019-07-01 13:50 | Hospitalist Progress Note ---
Date of Service July 01, 2019 Assessment & Plan (1) Erysipelas of right lower extremity: * IV Unasyn given in ED, continued to IV Cefazolin. Tetanus booster in ED. WBC 13.5k on admission. Improved to 7.3k today. * NSS @ 125ml/hr * Tmax 39.3C (102.7F) evening of 06/30, 38C last evening. Afebrile since that time. * ESR elevated to 70, CRP elevated at 15.4 which is trending downward-expect ESR to lag behind and trending downward * Blood cultures remain NGTD * On Clinda and Cefazolin IV * Wound culture of the leg drainage-- coag negative staph, no sensitivities to follow. Will discontinue cefazolin and keep clindamycin-- switch to PO tomorrow * Wound care consult -- appreciate input. Will consult wound doc, to see if possible to do skin scraping prior to discharge. * Per conversation with wound RN, patient ideally to be discharged home on compression wraps, however would need to obtain arterial studies/ABIs prior to wraps, and patient would have to be agreeable to follow up with wound care. If unable/unwilling to follow up, will not be able to utilize compression wraps * Infectious Disease consult-- appreciate input. (2) Pre-diabetes: * No hx diabetes * A1c 5.8 --> will need counseling and education prior to discharge (3) Acute febrile illness: * As above (4) Leukocytosis: * Improved. WBC 7k today as above (5) Tachycardia: * Resolved * Currently 90bpm -- elevation likely related to acute illness/fever. Asymptomatic. continue to monitor (6) DVT prophylaxis: * Lovenox Dispo: consult wound provider, arterial studies vs LEYDA, transition to PO antibiotics in AM Supervising Physician Co-Signing Physician Notes PA Supervision Note: I did not personally see or examine the patient today, but I verified all farrell points of MARKEL Irvin's assessment and plan with the following exceptions/additions: Tachycardia improving, will discontinue IV fluids. Subjective Patient up in chair upon arrival, and mother present. Erythema improved, ho wever wound continuing to drain serous fluid. Increased drainage. Denies pain. Denies any fever or chills. Generally feeling well outside of the redness. Able to ambulate through halls without difficulty. Discussed possibility of needing to follow up with wound care at discharge. Agreeable to stay for additional night of antibiotics and culture results. Plan to transition to PO antibiotics in AM. Review of Systems Review of Systems: All systems reviewed & are unremarkable except as noted in HPI & below Constitutional: no fever and no chills Ear, Nose, Mouth, Throat: no sore throat and no dysphagia Respiratory: no cough and no dyspnea Cardiovascular: no chest pain and no palpitations Gastrointestinal: no abdominal pain, no nausea, no vomiting, no constipation and no diarrhea/loose stools Musculoskeletal: no joint pain and no body aches Physical Exam Constitutional: WD/WN, vitals as above + obese; no acute distress Eyes: PERRL, conjunctivae normal, anicteric sclerae Neck: trachea midline, no thyromegaly Respiratory: normal respiratory effort, lungs clear to auscultation Cardiovascular: Heart Sounds: normal S1 and normal S2; no murmur Extremities: normal capillary refill; no calf tenderness Gastrointestinal (Abdomen): normal bowel sounds, soft, nontender, no hepatosplenomegaly obese Musculoskeletal: no cyanosis or clubbing, extremities motor strength 5/5 Skin: erythema improved of Right lower extremity, from distal leg to ankle, within marked lines. 2+ edema. Darkened/purple tense skin with blisters and serous drainage. No evidence of streaking. Nontender to palpation. 2+ edema Neurologic: patellar DTR's 2+ bilat, sensation intact Psychiatric: A+Ox3, euthymic affect Lymphatic: no cervical or axillary lymphadenopathy Results & Data Vital Signs (Past 12 Hours) Vital Signs Temp Pulse Resp BP Pulse Ox 07/01/19 07:47 37.0 C 90 18 117/81 100 07/01/19 01:52 36.9 C Laboratory Results 07/01/19 07/01/19 07/01/19 Range/Units 05:36 05:36 05:36 WBC 7.30 (4.8-10.8) K/uL RBC 3.80 L (4.7-6.1) M/uL Hgb 12.2 L (14.0-18.0) g/dL Hct 35.7 L (42-52) % MCV 93.9 (80-100) fL MCH 32.1 (25-34) pg MCHC 34.2 (32-36) g/dL RDW Std Deviation 47.5 H (36.4-46.3) fL RDW Coeff of Renetta 13.8 (11.5-14.5) % Plt Count 128 L (130-400) K/uL MPV 11.1 H (7.4-10.4) fL Immature Gran % (Auto) 0.5 % Neut % (Auto) 57.6 % Lymph % (Auto) 22.3 % Weston % (Auto) 11.8 % Eos % (Auto) 7.3 % Baso % (Auto) 0.5 % Immature Gran # (Auto) 0.04 H (0.00-0.02) K/uL Neut # (Auto) 4.20 (1.4-6.5) K/uL Lymph # (Auto) 1.63 (1.2-3.4) K/uL Weston # (Auto) 0.86 H (0.11-0.59) K/uL Eos # (Auto) 0.53 H (0-0.5) K/uL Baso # (Auto) 0.04 (0-0.2) K/uL ESR 70 H (0-14) mm/hr Sodium 138 (136-145) mmol/L Potassium 3.6 (3.5-5.1) mmol/L Chloride 110 H (98-107) mmol/L Carbon Dioxide 24 (21-32) mmol/L Anion Gap 4.0 (3-11) BUN 10 (7-18) mg/dl Creatinine 1.05 (0.6-1.4) mg/dl Est Cr Clr Drug Dosing Not Reportable Est GFR ( Amer) 96.8 Est GFR (Non-Af Amer) 83.5 BUN/Creatinine Ratio 9.6 L (10-20) Glucose 164 H (70-99) mg/dl Calcium 8.3 L (8.5-10.1) mg/dl Total Bilirubin 0.2 (0.2-1) mg/dl AST 21 (15-37) U/L ALT 34 (12-78) U/L Alkaline Phosphatase 82 (45-117) U/L C-Reactive Protein 15.40 H (0-0.29) mg/dl Total Protein 6.6 (6.4-8.2) gm/dl Albumin 2.6 L (3.4-5.0) gm/dl Globulin 4.0 (2.5-4.0) gm/dl Albumin/Globulin Ratio 0.7 L (0.9-2) 06/30/19 06/30/19 Range/Units 05:30 05:30 WBC (4.8-10.8) K/uL RBC (4.7-6.1) M/uL Hgb (14.0-18.0) g/dL Hct (42-52) % MCV (80-100) fL MCH (25-34) pg MCHC (32-36) g/dL RDW Std Deviation (36.4-46.3) fL RDW Coeff of Renetta (11.5-14.5) % Plt Count (130-400) K/uL MPV (7.4-10.4) fL Immature Gran % (Auto) % Neut % (Auto) % Lymph % (Auto) % Weston % (Auto) % Eos % (Auto) % Baso % (Auto) % Immature Gran # (Auto) (0.00-0.02) K/uL Neut # (Auto) (1.4-6.5) K/uL Lymph # (Auto) (1.2-3.4) K/uL Weston # (Auto) (0.11-0.59) K/uL Eos # (Auto) (0-0.5) K/uL Baso # (Auto) (0-0.2) K/uL ESR 42 H (0-14) mm/hr Sodium (136-145) mmol/L Potassium (3.5-5.1) mmol/L Chloride (98-107) mmol/L Carbon Dioxide (21-32) mmol/L Anion Gap (3-11) BUN (7-18) mg/dl Creatinine (0.6-1.4) mg/dl Est Cr Clr Drug Dosing Est GFR ( Amer) Est GFR (Non-Af Amer) BUN/Creatinine Ratio (10-20) Glucose (70-99) mg/dl Calcium (8.5-10.1) mg/dl Total Bilirubin (0.2-1) mg/dl AST (15-37) U/L ALT (12-78) U/L Alkaline Phosphatase (45-117) U/L C-Reactive Protein 17.40 H (0-0.29) mg/dl Total Protein (6.4-8.2) gm/dl Albumin (3.4-5.0) gm/dl Globulin (2.5-4.0) gm/dl Albumin/Globulin Ratio (0.9-2) PG Care Time/CCT Total # of Minutes Spent Total Time Spent with Patient: Total time spent is greater than 50% in coordination of care (as documented) at patient's floor/unit and/or counseling patient: (1) Leukocytosis Leukocytosis type: unspecified Qualified Code(s): D72.829 - Elevated white blood cell count, unspecified
--- NOTE | 2019-07-01 19:39 | Wound Consultation ---
Date of Consultation July 01, 2019 Assessment & Plan (1) Cellulitis of right lower le49 year old male with right lower extremity cellulitis. Recommend arterial ultra sound. Wound will be dressed with aquacel ag and kerlix. After ultra sound would consider compression wrap. Patient agreeable to follow up in office. Thank you for allowing me to participate in the care of this patient. Please dont hesitate to call with any questions. History of Present Illness Reason for Consultation: cellulitis right lower extremity Attending Physician: Johanna Tubbs MD History of Present Illness This is a 49 year old male with a history of prediabetes admitted with cellulitis of right lower leg. Wound is being dressed with aquacel ag and kerlix. He is on clindamycin. Allergies Allergy/AdvReac Type Severity Reaction Status Date / Time No Known Allergies Allergy Unverified 06/29/19 19:32 Home Medications Home Medications Medication Instructions Recorded Confirmed Type acetaminophen [Tylenol Extra 1,000 mg PO Q6H PRN 06/29/19 06/29/19 History Strength] Patient History Medical History Closed right ankle fracture Surgical History History of open reduction and internal fixation (ORIF) procedure Social History Preferred Language: Armenian Communication Ability: Effective Hardener Helper Required: No Beliefs That Will Affect Care: None marital status: Current Living Situation: Spouse Feels Safe at Home: Yes Smoking Status: Former smoker Tobacco Type: smokeless tobacco ; Second Hand Exposure: No ; Hx Alcohol Use: Yes Alcohol type: hard liquor Hx Substance Use: No Review of Systems Review of Systems: All systems reviewed & are unremarkable except as noted in HPI & below Physical Exam Constitutional: WD/WN, vitals as above Eyes: PERRL, conjunctivae normal, anicteric sclerae ENMT: Ears: no hearing impairment Respiratory: normal respiratory effort, lungs clear to auscultation Skin: Wound measuring as in nursing note. There is a large amount of serosanguinous drainage. Periwound with erythema. Neurologic: awake; not confused Psychiatric: A+Ox3, euthymic affect Results & Data Vital Signs (Past 12 Hours) Vital Signs Temp Pulse Resp BP Pulse Ox 07/01/19 15:22 37.3 C 94 H 20 131/77 95 07/01/19 07:47 37.0 C 90 18 117/81 100 PG Care Time/CCT Total # of Minutes Spent Total Time Spent with Patient: Total time spent is greater than 50% in coordination of care (as documented) at patient's floor/unit and/or counseling patient:
[2019-07-02] MEDS: CLINDAMYCIN 600 MG in DEXTROSE 5% 50 ML IV SCH ×2 (02:26→09:57)
[2019-07-02] MEDS: LACTOBACILLUS ACIDOPHILUS 1 GM PACK PO SCH ×2 (07:42→11:28)
[2019-07-02] MEDS: ENOXAPARIN INJ 40 MG/0.4 ML SYR SQ SCH (07:42)
--- NOTE | 2019-07-02 10:11 | Infectious Disease Progress Nt ---
Date of Service July 02, 2019 Assessment & Plan (1) Cellulitis of right lower leg: will continue current abx, clinically appears to be improving. blood cultures negative, wound culture likely skin prudencio. continue local wound care. upoon d/c can transition to po doxy, would give 21 days. continue local wound care. Subjective pt with isolated fever overnight, tmax 37.8, overall fevers improved. blood cultures remain negative, wound culture with WET COTTON FEEDER. tolerating IV abx. Results & Data Vital Signs (Past 12 Hours) Vital Signs Temp Pulse Resp BP Pulse Ox 07/02/19 08:00 36.9 C 118 H 18 125/67 97 07/02/19 00:04 37.8 C H 95 H 22 121/60 94 Laboratory Results Microbiology 06/29/19 20:11 Blood Aerobic Blood Culture - Preliminary No growth in Aerobic bottle after 48 hours. 06/29/19 20:11 Blood Anaerobic Blood Culture - Preliminary No growth in Anaerobic bottle after 48 hours. 06/29/19 20:07 Blood Aerobic Blood Culture - Preliminary No growth in Aerobic bottle after 48 hours. 06/29/19 20:07 Blood Anaerobic Blood Culture - Preliminary No growth in Anaerobic bottle after 48 hours. 06/30/19 20:53 Leg,Right Gram Stain - Final 06/30/19 20:53 Leg,Right Wound Culture - Preliminary Coag negative Staphylococcus PG Care Time/CCT Total # of Minutes Spent Total Time Spent with Patient: Total time spent is greater than 50% in coordination of care (as documented) at patient's floor/unit and/or counseling patient:
[2019-07-02 11:29] LABS: BUN Creatinine Ratio 7.6 (10-20); Blood Urea Nitrogen 9 mg/dl (7-18); Calcium 8.9 mg/dl (8.5-10.1); Carbon Dioxide 27 mmol/L (21-32); Chloride 106 mmol/L (98-107); Est GFR (African American) 88.6; Est GFR (Non-African American) 76.4; Glucose 133 mg/dl (70-99); Potassium 3.8 mmol/L (3.5-5.1); Sodium 137 mmol/L (136-145)
--- NOTE | 2019-07-02 13:40 | Ultrasound Report ---
US ankle/brachial index comp CLINICAL HISTORY: 49 years-old Male presenting with need for compression stockings at discharge.. TECHNIQUE: Ankle brachial indices were obtained. COMPARISON: None. FINDINGS: Brachial: Right: 121 mmHg. Left: 125 mmHg. Ankle (posterior tibial): Right: 125 mmHg. Left: 138 mmHg. Ankle (dorsalis pedis): Right: 125 mmHg. Left: 129 mmHg. Ankle/brachial index: Right: 1.0, Left: 1.1. Reference ranges: Normal LEYDA 1.0-1.4; 0.9-0.99 borderline; less than 0.9 abnormal. IMPRESSION: Normal bilateral ankle-brachial indices. ACT 112: Negative or not required by law. Electronically signed by: Hermelindo Blackburn M.D. 07/02/2019 1:39 PM
--- NOTE | 2019-07-02 13:40 | Hospitalist Progress Note ---
Date of Service July 02, 2019 Assessment & Plan (1) Erysipelas of right lower extremity: * IV Unasyn given in ED, continued to IV Cefazolin. Tetanus booster in ED. WBC 13.5k on admission. Improved to 7.3k today. * NSS @ 125ml/hr * Tmax 39.3C (102.7F) evening of 06/30, 38C last evening. Afebrile since that time. * ESR elevated to 70, CRP elevated at 15.4 which is trending downward-expect ESR to lag behind and trending downward * Blood cultures remain NGTD * On Clinda and Cefazolin IV * Wound culture of the leg drainage-- coag negative staph, no sensitivities to follow. Will discontinue cefazolin and keep clindamycin-- switch to PO tomorrow * Wound care consult -- appreciate input. Will consult wound doc, to see if possible to do skin scraping prior to discharge. * Per conversation with wound RN, patient ideally to be discharged home on compression wraps, however would need to obtain arterial studies/ABIs prior to wraps, and patient would have to be agreeable to follow up with wound care. If unable/unwilling to follow up, will not be able to utilize compression wraps * Infectious Disease consult-- appreciate input. (2) Pre-diabetes: * No hx diabetes * A1c 5.8 --> will need counseling and education prior to discharge (3) Acute febrile illness: * As above (4) Leukocytosis: * Improved. WBC 7k today as above (5) Tachycardia: * Resolved * Currently 90bpm -- elevation likely related to acute illness/fever. Asymptomatic. continue to monitor (6) DVT prophylaxis: * Lovenox Dispo: consult wound provider, arterial studies vs LEYDA, transition to PO antibiotics in AM Subjective Patient evaluated this morning. Concerns regarding medication coverage and medical assistance. Discussed with CM. Patient states he is feeling well. Hoping for discharge today. Agreeable for plan to obtain ABIs prior to compression devices and need for follow up with wound clinic. Able to ambulate halls without pain or difficulty. No pain with movement. Decreased redness. Denies any fever, chills, chest pain, shortness of breath, abdominal pain, n/v/d/c, dysuria. Results & Data Vital Signs (Past 12 Hours) Vital Signs Temp Pulse Resp BP Pulse Ox 07/02/19 08:00 36.9 C 118 H 18 125/67 97 PG Care Time/CCT Total # of Minutes Spent Total Time Spent with Patient: Total time spent is greater than 50% in coordination of care (as documented) at patient's floor/unit and/or counseling patient: (1) Leukocytosis Leukocytosis type: unspecified Qualified Code(s): D72.829 - Elevated white blood cell count, unspecified
[2019-07-02] MEDS ORDERED: DOXYCYCLINE HYCLATE 100 MG CAP PO STA (16:30)
--- NOTE | 2019-07-02 16:35 | Discharge Summary ---
Date of Service July 02, 2019 Admission HPI Per Admitting Provider 49 y/o male presented to the ED with a 12hour onset of right lower extremity redness, swelling and burning pain. He had noticed fevers on and off since the previous day. He felt that his right leg was "itchy" overnight and that he was likely scratching it with his opposite foot. At work he reports bumping his leg a number of times as part of daily routine in the [employer] business. No SOB, cough, chest pain, N/V/D, or headache. . Admission Exam Per Admitting Provider General- adult, male NAD Head- atraumatic Eyes- PERRL, EOMI, anicteric ENT- oropharynx clear Neck- supple, no JVD, no adenopathy, no thyromegaly. Lungs- CTA b/l no R/R/W Heart- regular rhythm; no murmur, no gallop, no rub appreciated Abdomen- normal bowel sounds, soft, nontender. Extremities- Right lower extremity shows circumferential bright red erythema with a few small open areas medially with serosanguinous drainage. erythema margins marked with pen. Left leg shows hemosiderin changes. Neuro- alert, oriented x 3; PERRL, EOMI; no facial palsy; no dysarthria; motor 5/5 bilaterally; no cogwheel rigidity; patellar DTRs +2/2; toes downgoing bilaterally; finger to nose intact bilaterally Skin- See ext exam. Principal Diagnosis Erysipelas Right Lower Extremity Discharge Exam Constitutional WD/WN, vitals as above + obese; no acute distress Eyes PERRL, conjunctivae normal, anicteric sclerae Neck trachea midline, no thyromegaly Respiratory normal respiratory effort, lungs clear to auscultation Cardiovascular RRR, no murmur, no edema Heart Sounds: normal S1 and normal S2; no murmur Extremities: normal capillary refill; no calf tenderness Gastrointestinal (Abdomen) normal bowel sounds, soft, nontender, no hepatosplenomegaly Musculoskeletal no cyanosis or clubbing, extremities motor strength 5/5 Skin decreased erythema and drainage right LE Neurologic patellar DTR's 2+ bilat, sensation intact Psychiatric A+Ox3, euthymic affect Lymphatic no cervical or axillary lymphadenopathy Discharge Data Allergies Allergy/AdvReac Type Severity Reaction Status Date / Time No Known Allergies Allergy Unverified 06/29/19 19:32 Consultations 06/29/19 21:22 ED Decision to Admit Stat 06/30/19 18:10 Consult Infectious Diseases Routine 07/01/19 13:54 Consult Wound Care Provider Routine Ordered Studies 06/29/19 Tib/Fib xray CXR Ankle xray 07/02/19 09:50 US ankle/brachial index comp Urgent Hospital Course (1) Erysipelas of right lower extremity: * IV Unasyn given in ED, continued to IV Cefazolin. Tetanus booster in ED. WBC 13.5k on admission. Improved prior to d/c. * Tmax 39.3C (102.7F) evening of 06/30. Afebrile day of discharge * ESR elevated to 70, CRP elevated at 15.4 which is trending downward-expect ESR to lag behind and trending downward * Blood cultures remain NGTD * ID consult * Clinda and Cefazolin IV with ultimate transition to doxy PO at discharge to complete course for 21 days, given Group A strep on culture. * Wound consult. Wraps with [employer]. Provided supplies at discharge. ABIs performed. Follow up with wound care for possible compression devices, as not fitted while inpatient. (2) Pre-diabetes: * No hx diabetes * A1c 5.8 --> counseling performed prior to discharge. Encouraged diet/exercise. * Rec PCP follow up and repeat in 3 months (3) Acute febrile illness: * As above (4) Leukocytosis: * Improved. WBC 7k as above (5) Tachycardia: * Elevated up to 130 on admission. Likely secodary to acute febrile illness. * Resolved - 87bpm prior to discharge. (6) DVT prophylaxis: * Lovenox while inpatient Discharged home with . Follow up with PCP and wound clinic. Total Time Total Time Spent Total Time Spent (In Minutes): 60 Discharge Plan Discharge Items Patient Disposition: Home - Self-Care Reason For Visit: CELLULITIS, R LEG Discharge Diagnosis: Cellulitis Right Leg Condition on Discharge: Good Activity: As commented below Activity Comment: no work until seen by primary care and wound care as outpatient Non-emergency contact: Primary Care Provider Call non-emergency contact if: you have any medication questions, your symptoms worsen, your pain is not controlled and you have a fever Follow-up/Referrals: Tae Larson MD [Primary Care Provider] - 07/09/19 11:30 am (Please, follow up with Dr. Larson on July 09 at 11:30 am. *If you need to change this appointment, call the office at [phone].) Diet: Carb Consistent or DM2 Addtl Attending Provider Instructions: During this hospitalization, you were found to have an infection of you right leg. Cultures were collected and were treated with IV antibiotics evaluated by infectious disease doctor (Dr. Barone). It was determined that you can safely be discharged on oral doxycycline based on your culture. You should take this medication for the next 21 days. Please take as prescribed and do not miss any doses. Drink with a full glass of water and don't lay down right after you take it-please wait 30 minutes. You were also seen by our wound care nurse and provider. Please continue to use the Aquacel Ag. Please elevate your feet as much as possible. Please follow up with primary care as above. Please follow up with wound clinic as outpatient to ensure proper healing. You have been set up an appointment with wound clinic on July 08 at 09:30am. Their office number is . Of note, as discussed, you had a lab test performed that helps us to screen for diabetes, as this can complicate wound healing. Your A1c was found to be elevated at 6.2. This is termed pre-diabetes. If you spike a fever, develop pain, or the redness begins to spread, please return to the emergency department. It has been a pleasure being a part of the medical team providing for you during your stay. Take care! Pending Studies at Discharge: Yes Studies:: Blood cultures Stand-Alone Forms: [facility], Work/School Release (Inpt) Medications and DC Order Prescriptions: New doxycycline hyclate 100 mg capsule 100 mg PO BID 21 Days Qty: 42 RF: 0 Continued acetaminophen [Tylenol Extra Strength] 500 mg Tablet 1,000 mg PO Q6H PRN (Reason: Fever Or Pain) RF: 0 Discharge Orders: Discharge Order (Routine); Ordered 07/02/19 Ordered By: Johanna Malik/Other Patient Handouts: ED Infec Skin Cellulitis, Doxycycline Hyclate Gastro-resistant tablet, Doxycycline Hyclate Oral tablet [Periodontitis] Admission Data Admit Date/Time: 06/29/19 22:12 Attending Provider: Johanna Tubbs Admit Provider: Ra Winters Primary Care Provider: Tae Larson Other Providers: Ra Winters ; Roxana Barone ; Lefty Douglass Other Interventions: Discharge Summary Assessment (RN) Last Done: 07/02/19 16:45 DC Date/Time DO NOT enter until pt leaves facility: 07/02/19 17:45
== END 2019-07-02 17:45 | disposition home or self-care (01) | DRG 603 ==
LOC: ED 19:10 → 3E 22:12 → SUATTDRO 22:12 → 3E 22:59